=== PATIENT | male | born 1995 | race Caucasian/White ===

== ENCOUNTER 2020-05-13 18:37 | Emergency (ER) | payer MEDICAID, OTHER, SELFPAY ==
[~2020-05-13] VITALS: Ht 188 cm; Wt 84.9 kg
[2020-05-13 18:45] VITALS: BP 159/100
[2020-05-13] MEDS ORDERED: LIDOCAINE 1%, 2ML INFIL ONE (19:30)
[2020-05-13] MEDS ORDERED: BUPIVACAINE 0.25% INFIL ONE (19:30)
[2020-05-13] MEDS ORDERED: LIDOCAINE-MPF 1%, 2ML ONE (19:38)
[2020-05-13] MEDS ORDERED: BUPIVACAINE 0.25% ONE (19:38)
== END 2020-05-13 20:45 | disposition home or self-care (01) ==
LOC: ED 20:30
DX: K02.9 Dental caries, unspecified (principal); R51 Headache; Z72.9 Problem related to lifestyle, unspecified; F17.210 Nicotine dependence, cigarettes, uncomplicated
CPT/HCPCS: 64400; 99284; 99406; J3490